=== PATIENT | female | born 1940 | race Caucasian/White ===

== ENCOUNTER 2016-06-19 08:18 | Day surgery (SDC) | payer MEDICARE, BC ==
--- NOTE | 2016-06-18 11:49 | NUR ---
CARDIAC HX OF CHEST PAIN & HEART CATH IN APR [address] RUSSELL, REPORT & EKG IN CHART, THIS FINDING/INFORMATION WAS GIVEN TO MARCELINO GALEANA CRNA TO VERIFY IF WE WOULD NEED TO GET CARDIAC CLEARANCE FROM DR RUSSELL'S OFFICE. MARCELINO LOOKED OVER CHART AND STATED THAT WHAT WAS IN THE CHART WAS GOOD ENOUGH FOR HIM TO CONTINUE WITH THE PROCEDURE. 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
[~2016-06-19] VITALS: Ht 160 cm; Wt 47.5 kg
[~2016-06-19 08:18] MED LIST: ALEN70TA2 PO; ASPI-558 PO; CRAN500C3 PEG; FLUO10TA27 PO; LIDOCAINE 1% (10mg/ml) 2ml SDV INJ ONE; LR 1,000 ML IV SCH; SIMV40TA5 PO; [UNRECOGNIZED DRUG - CODE] PO
--- OUTSIDE RECORDS SUMMARY | 2016-06-19 08:22 | XMS REPORT | Continuity of Care Document ---
Author Author [facility] Organization [facility] Address Unknown Phone Unavailable Allergies Medications Problems Procedures Results Encounters ACCT No. Visit Date/Time Discharge Status Pt. Type Provider Facility Loc./Unit Complaint [id number] 03/23/2013 08:46:00 03/23/2013 23 :59:59 CLS Outpatient
--- OUTSIDE RECORDS SUMMARY | 2016-06-19 08:22 | XMS REPORT | Referral Summary ---
Author Author [facility], [facility] Organization [facility] Address Unknown Phone Unavailable Care Team Providers Care Ramp Lead Name Role Phone Sydnie Sales Primary Care Physician [phone] Encounter VC Date(s): 01/02/16 - 01/02/16 [facility] [address] [place] [address]- Discharge Disposition: 01-Home or Self Care Attending Physician: Herman Jones APRN Admitting Physician: Herman Jones APRN Vital Signs No data available for this section Problem List Condition Effective Dates Status Health Status Informant Anxiety Resolved depression(Confirmed ) Anxiety state Active (finding)(Confirmed) Hx anemia(Confirmed) Resolved Hx Resolved pyelonephritis(Confi rmed) Hx urinary Resolved infection(Confirmed) Malaria(Confirmed) 2012 Resolved Mitral valve 1998 Resolved thickening on ECHO(Confirmed) Osteoporosis(Confirm Resolved ed) 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) Allergies, Adverse Reactions, Alerts Substance Reaction Severity Status Cipro doesn't work Active sulfamethoxazole fever Active Medications Aspirin Low Dose mg, Oral, Daily, 0 Refill(s) Start Date: 08/27/13 Status: Ordered FLUoxetine 10 mg oral capsule See Instructions, TAKE ONE CAPSULE BY MOUTH DAILY, # 120 caps, 1 Refill(s), eRx : [facility] #[id number], TAKE ONE CAPSULE BY MOUTH DAILY Start Date: 08/15/15 Status: Ordered Fosamax 70 mg oral tablet 70 mg 1 tabs, Oral, qWeek, # 12 tabs, 3 Refill(s), Pharmacy: [facility] # [id number], 1 tabs Oral qWeek Start Date: 04/26/15 Status: Ordered meloxicam 15 mg oral tablet 15 mg 1 tabs, Oral, Daily, # 15 tabs, 0 Refill(s), Pharmacy: [facility] # [id number], 1 tabs Oral Daily Start Date: 06/14/15 Status: Ordered simvastatin 40 mg oral tablet See Instructions, TAKE ONE TABLET BY MOUTH EVERY NIGHT AT BEDTIME, # 120 tabs, 2 Refill(s), eRx: [facility] #[id number], TAKE ONE TABLET BY MOUTH EVERY NIGHT AT BEDTIME Start Date: 07/06/15 Status: Ordered Zofran ODT 4 mg oral tablet, disintegrating 4 mg 1 tabs, Oral, q6hr, as needed for nausea/vomiting, # 8 tabs, 1 Refill(s), Pharmacy: [facility] #[id number], 1 tabs Oral q6hr,PRN:as needed for nausea/ vomiting Start Date: 05/01/15 Stop Date: 05/01/16 Status: Ordered Results No data available for this section Immunizations Vaccine Date Refusal Reason cholera vaccine 02/15/82 cholera vaccine 08/31/81 cholera vaccine 03/16/64 tetanus/diphth/pertuss (Tdap) adult/adol 11/18/13 tetanus/diphth/pertuss (Tdap) adult/adol 03/16/62 hepatitis A adult vaccine 12/15/11 hepatitis A adult vaccine 12/14/09 hepatitis A adult vaccine 06/24/99 hepatitis A-hepatitis B vaccine 01/19/12 hepatitis B adult vaccine 11/18/13 hepatitis B adult vaccine 12/15/11 influenza virus vaccine, inactivated 01/02/16 influenza virus vaccine, inactivated 01/16/15 influenza virus vaccine, live 03/02/13 influenza virus vaccine, live 01/19/12 meningococcal conjugate vaccine 11/18/13 meningococcal conjugate vaccine 06/15/03 meningococcal conjugate vaccine 04/01/99 meningococcal conjugate vaccine 01/23/94 poliovirus vaccine, inactivated 12/15/11 tetanus toxoid 05/09/99 tetanus-diphth toxoids (Td) adult/adol 06/14/03 tetanus-diphth toxoids (Td) adult/adol 05/09/99 tetanus-diphth toxoids (Td) adult/adol 01/09/94 tetanus-diphth toxoids (Td) adult/adol 03/16/81 typhoid vaccine, live 06/15/03 typhoid vaccine, live 05/09/99 typhoid vaccine, live 01/09/94 typhoid vaccine, live 03/16/81 yellow fever vaccine 06/14/03 yellow fever vaccine 07/25/92 yellow fever vaccine 03/16/64 yellow fever vaccine 03/16/61 Procedures Procedure Date Related Diagnosis Body Site Exc Sq cell CA Tonsillectomy Social History Social History Type Response Smoking Status Never smoker Assessment and Plan No data available for this section
--- OUTSIDE RECORDS SUMMARY | 2016-06-19 08:23 | XMS REPORT | Continuity of Care Document ---
Author Author [facility] Organization [facility] Address Unknown Phone Unavailable Support Name Relationship Address Phone NISSA RUSSELL MD Caregiver [address] [place] [address] [address] [place] [address] Unavailable NISSA RUSSELL MD Caregiver [address] [place] [address] [address] [place] [address] Unavailable ANDRZEJ BROTHERS MD Caregiver [address] [place] [address] Unavailable MARILEE ARELLANO DO Caregiver [address] [place] [address] Unavailable MALI PAGE Next Of Kin [id number] [place], [place] [id number] Insurance Providers Guarantor Prudence Page Address [address] [place] [address] Email DENIED16 [facility] Policy Number [id number] Subscriber's Name Prudence Page Relationship 18 Self Group Number [id number] Effective Date 13 Expiration Date 14 Payer Medicare Policy Number [id number] Subscriber's Name Prudence Page Relationship 18 Self Advance Directives Directive Response Recorded Date/Time Advanced Directives Type None 04/16/16 9:48am Ordered Resuscitation Status Full Code 04/16/16 11:34am Resuscitation Documents on File No 04/16/16 12:19pm DPOA for Healthcare Only No 04/16/16 12:19pm Living Will No 04/16/16 12:19pm Advance Directive Consult Information Given 04/17/16 12:08pm Problems Active Problems Medical Problem Onset Date Status Mixed hyperlipidemia Unknown Chronic Past Problems Medical Problem Onset Date Chest pain, rule out acute myocardial infarction Unknown Medications Current Home Medications Medication Dose Units Route Directions Days Qty Instructions Start Date Alendronate Sodium (Fosamax) 70 Mg Tablet 70 Mg Oral 1 Week 04/16 Aspirin (Aspir 81) 81 Mg Tablet.dr Mg Oral Daily 05/08/08 Calcium Carbonate/Vitamin D3 (Calcium 500 Mg Chewable Tablet) 1 Each Tab.chew 500 Mg Oral Daily 04/16/16 Cranberry Extract (Cranberry) 500 Mg Capsule 500 Mg Peg Tube Fluoxetine Hcl (Prozac) 10 Mg Tablet Mg Oral Daily 05/08/08 Simvastatin 40 Mg Tablet 40 Mg Oral Bedtime Take 1 tablet, by mouth , 1 time a day (at BEDTIME). 04/16/16 Past Home Medications Medication Directions Ordered Status Alendronate Sodium (Fosamax) 70 Mg Tablet, 70 Mg Oral Weekly 05/08/08 Discontinued Calcium 500 Mg Tablet, 500 Mg Oral Daily 05/08/08 Discontinued Social History Social History Problem Response Recorded Date/Time Onset Date Status Reason for Hospitalization chest pain 04/17/2016 3:51pm Not Applicable Not Applicable Hx Substance Use No 04/16/2016 10:02am Not Applicable Not Applicable Hx Alcohol Use Y wine w/ diinner 04/16/2016 10:02am Not Applicable Not Applicable Has the pt used tobacco in the last 12 months No 04/16/2016 12:21pm Not Applicable Not Applicable Query Response Start Date Stop Date Smoking Status Never smoker Hospital Discharge Instructions Instructions: Care Instructions: I was in the hospital because (patient own words): PATIENT STATES, "I FELT A VERY RAPID HEARTRATE AND DISCOMFORT IN MY CHEST" Discharge Diet: Resume heart healthy diet Discharge Activity: Limit activity for 2 days. No lifting more than 10 pounds, no pushing or pulling for 1 week. Follow Up Appointments: Follow up with Dr. Russell on: 05/01/16 at 9:00 Pending Lab / Results: No Pending Lab Patient Instructions: Do not drive, operate machinery or drink alcohol for 2 days. Take your BP 2-3X week and record, bring record to your follow up appointment. Expected Signs/Symptoms: bruising and tenderness at site Notify Physician If: Site is bleeding, abnormal drainage, increased pain or fever of 101.5 or more. During Business Hours:: Please call the physician's office at [phone] After Business Hours:: Please call [phone] and have the soda dry house operator page the physician. Pain Management/Treatment: OTC pain medications if needed Wound/Incision Care: Keep site clean and dry. No tub baths or swimming for 1 week. You may shower. Condition at time of discharge: Good Plan of Care Discharge Date 04/17/16 4:43pm Instructions/Education Provided [facility] Heart Cath Trans Rad Prescriptions See Medication Section Functional Status Query Response Date Recorded Mobility Status Ambulatory April 16, 2016 12:33pm Assistive Devices None April 16, 2016 12:33pm Activity Limitations None April 16, 2016 12:33pm Feeding Ability Independent April 16, 2016 12:33pm Toileting Ability Independent April 16, 2016 12:33pm Grooming Ability Independent April 16, 2016 12:33pm Dressing Ability Independent April 16, 2016 12:33pm Driving Ability Independent April 16, 2016 12:33pm Housework Ability Independent April 16, 2016 12:33pm Meal Preparation Ability Independent April 16, 2016 12:33pm Stair Climbing Ability Independent April 16, 2016 12:33pm Ability to complete ADL's impeded by No change April 16, 2016 12:33pm Cognitive/Perceptual Impairments Impaired vision April 16, 2016 12:33pm Visual Assistive Devices Glasses With patient April 16, 2016 12:33pm Allergies, Adverse Reactions, Alerts Allergen Type Severity Reaction Status Last Updated Sulfa (Sulfonamide Antibiotics) Allergy Mild rash Active 04/16/16 Immunizations Query Response on File Recorded Date/Time Hx Influenza Vaccination Y DECEMBER 2015 04/16/16 12:21pm Hx Pneumococcal Vaccination No 04/16/16 12:21pm Hx Influenza Vaccination Y DECEMBER 2015 04/16/16 12:21pm Influenza Vaccine Hx DECEMBER 2015 04/16/16 12:24pm Vital Signs Acute Vital Signs Vital Response Date/Time Temperature (Fahrenheit) 97.6 deg F (96.8 - 99.1) 04/17/2016 4:08pm Temperature (Calculated Celsius) 36.79509 degrees C (36.0 - 37.3) 04/17/2016 4:08pm Temperature Source Oral 04/17/2016 4:08pm Pulse Rate (adult) 49 bpm (60 - 100) 04/17/2016 4:08pm Respiratory Rate 16 breaths/min (10 - 20) 04/17/2016 4:08pm O2 Sat by Pulse Oximetry 99 % (90 - 100) 04/17/2016 4:08pm Oxygen Delivery Method Room Air 04/17/2016 4:08pm Oxygen Delivery Method Room Air 04/17/2016 4:06pm Blood Pressure 124/58 mm Hg 04/17/2016 4:08pm Blood Pressure Source Automatic Cuff 04/17/2016 4:08pm Height (Feet) 5 feet 04/16/2016 12:34pm Height (Inches) 2.00 inches 04/16/2016 12:34pm Weight (Kilograms) 48.300 kg 04/17/2016 8:00am Body Mass Index (BMI) 18.9 04/16/2016 12:18pm Results Laboratory Results Test Name Result Units Flags Reference Collection Date/Time Result Date/ Time Comments White Blood Count 6.8 T/MM3 4.5-11.0 04/17/2016 4:02am 04/17/2016 7: 52am Red Blood Count 3.96 M/MM3 L 4.00-5.20 04/17/2016 4:02am 04/17/2016 7: 52am Hemoglobin 10.1 GM/DL L 12-16 04/17/2016 4:02am 04/17/2016 7:52am Hematocrit 31.9 % L 36-46 04/17/2016 4:0204/17/2016 7:52am Mean Corpuscular Volume 80.6 UM3 80-100 04/17/2016 4:02am 04/17/2016 7: 52am Mean Corpuscular Hemoglobin 25.5 UUG L 26-34 04/17/2016 4:02am 2016 7:52am Mean Corpuscular Hemoglobin Concent 31.7 GM/DL 31-37 04/17/2016 4:02am 04/17/2016 7:52am RDW Standard Deviation 44.9 FL 36.9-50.2 04/17/2016 4:02am 04/17/2016 7 :52am Platelet Count 412 T/MM3 H 130-400 04/17/2016 4:02am 04/17/2016 7:52am Mean Platelet Volume 8.8 UM3 L 9.4-12.4 04/17/2016 4:02am 04/17/2016 7: 52am Neutrophils (%) (Auto) 58.6 % 33-66 04/17/2016 4:02am 04/17/2016 7: 52am Lymphocytes (%) (Auto) 29.6 % 23-45 04/17/2016 4:02am 04/17/2016 7: 52am Monocytes (%) (Auto) 9.2 % H 0-9.0 04/17/2016 4:02am 04/17/2016 7:52am Eosinophils (%) (Auto) 1.9 % 0-4 04/17/2016 4:02am 04/17/2016 7:52am Basophils (%) (Auto) 0.6 % 0-2 04/17/2016 4:02am 04/17/2016 7:52am Immature Granulocyte % (Auto) 0.1 % 0.0-0.5 04/17/2016 4:02am 2016 7:52am Absolute Neutrophils (auto) 4.0 T/MM3 1.8-7.7 04/17/2016 4:02am 2016 7:52am Absolute Lymphocytes (auto) 2.0 T/MM3 1-4.8 04/17/2016 4:02am 2016 7:52am Absolute Monocytes (auto) 0.6 T/MM3 0-0.8 04/17/2016 4:02am 04/17/2016 7:52am Absolute Eosinophils (auto) 0.1 T/MM3 0-0.5 04/17/2016 4:02am 2016 7:52am Absolute Basophils (auto) 0.0 T/MM3 0-0.2 04/17/2016 4:0204/17/2016 7:52am Absolute Immature Granulocyte (auto 0.01 T/MM3 0.00-0.03 04/17/2016 4: 02am 04/17/2016 7:52am Icterus Index < 2 0-7 04/17/2016 4:02am 04/17/2016 8:03am Chemistry Specimen Hemolysis 16 0-25 04/17/2016 4:02am 04/17/2016 8: 03am 0-25: Specimen Exhibited No Hemolysis. Turbidity < 20 0-20 04/17/2016 4:02am 04/17/2016 8:03am Sodium Level 138 MEQ/L 134-144 04/17/2016 4:02am 04/17/2016 8:03am Potassium Level 4.3 MEQ/L D 3.6-5 04/17/2016 4:02am 04/17/2016 8:11am Chloride Level 101 MEQ/L 98-107 04/17/2016 4:0204/17/2016 8:03am Carbon Dioxide Level 25 MEQ/L 22-30 04/17/2016 4:04/17/2016 8: 03am Anion Gap 12 MEQ/L 5-15 04/17/2016 4:04/17/2016 8:03am Blood Urea Nitrogen 11.0 MG/DL 7-17 04/17/2016 4:04/17/2016 8: 03am Creatinine 0.7 MG/DL 0.7-1.2 04/17/2016 4:04/17/2016 8:03am BUN/Creatinine Ratio 16 RATIO 6-26 04/17/2016 4:04/17/2016 8:03am Glomerular Filtration Rate Calc 82 04/17/2016 4:04/17/2016 8: 03am Glucose Level 80 MG/DL 65-110 04/17/2016 4:04/17/2016 8:03am Calculated Osmolality 264 MOSM/KG 261-280 04/17/2016 4:04/17/2016 8:03am Calcium Level 9.9 MG/DL D 8.4-10.2 04/17/2016 4:04/17/2016 8:11am Total Bilirubin 0.50 MG/DL 0.20-1.30 04/16/2016 10:0504/16/2016 10: 19am Alkaline Phosphatase 45 U/L 38-126 04/16/2016 10:0504/16/2016 10: 19am Total Protein 7.0 G/DL 6.3-8.2 04/16/2016 10:0504/16/2016 10:19am Albumin 4.3 G/DL 3.5-5.0 04/16/2016 10:0504/16/2016 10:19am Globulin 2.7 G/DL 2.4-3.6 04/16/2016 10:0504/16/2016 10:19am Albumin/Globulin Ratio 1.6 RATIO 1.1-2.2 04/16/2016 10:0504/16/2016 10:19am Aspartate Amino Transf (AST/SGOT) 26 U/L 14-36 04/16/2016 10:0504/16 10:19am Alanine Aminotransferase (ALT/SGPT) 29 U/L 9-52 04/16/2016 10:05am 03/2016 10:19am Cholesterol Level 214 MG/DL H 132-199 04/17/2016 4:02am 04/17/2016 5: 39am HDL Cholesterol Direct 57 MG/DL 40-60 04/17/2016 4:02am 04/17/2016 5: 39am Cholesterol/HDL Ratio 3.8 RATIO 0-4.0 04/17/2016 4:02am 04/17/2016 5: 39am Troponin I < 0.012 ng/ml 0-0.12 04/17/2016 4:02am 04/17/2016 5:50am Troponin values with a difference of 55% increase from orginal troponin value represent a true biological DELTA value. (%increase Calc=Orginal Troponin value, divided by subsequent Troponin value, multiplied by 100) Magnesium Level 1.9 MG/DL 1.6-2.3 04/16/2016 10:05am 04/16/2016 2:22pm Thyroid Stimulating Hormone (TSH) 6.18 MIU/L H 0.47-4.68 04/16/2016 10: 05am 04/16/2016 2:54pm Name: PRUDENCE PAGE Unit #: [id number] : 1940 Sex: F Admit Date: Loc / Svc: ED Discharge Date: DIAGNOSTIC IMAGING REPORT Report #: [id number] [facility] [place] Indication: ITS.REASON: Chest pain and pressure for one day, rapid heartbeat PROCEDURE: CHEST 1 VIEW: Encounter: Initial Comparison: March 26, 2010 FINDINGS: The lungs are clear. There is no abnormal airspace opacity, pleural effusion or pneumothorax identified. The heart size, pulmonary vasculature and mediastinum are within normal limits. No significant skeletal abnormality is seen. IMPRESSION: No acute cardiopulmonary abnormality. . Procedures No known history of procedures. Encounters Encounter Location Arrival/Admit Date Discharge/Depart Date Attending Provider Departed [facility] Day [facility] 04/16/16 11:34am 04/17/16 4 :43pm NISSA RUSSELL MD
--- OUTSIDE RECORDS SUMMARY | 2016-06-19 08:23 | XMS REPORT | Referral Summary ---
Author Author [facility] Organization [facility] Address Unknown Phone Unavailable Care Team Providers Care Stranding Machine Operator Name Role Phone Sydnie Sales Primary Care Physician [phone] Encounter VC Date(s): 04/28/16 - 04/28/16 [facility], [address] [place] [address]- Discharge Diagnosis: Palpitations Discharge Diagnosis: Subclinical hypothyroidism Discharge Diagnosis: Anxiety state (finding) Discharge Disposition: 01-Home or Self Care Attending Physician: Tim Sales MD Admitting Physician: Tim Sales MD Vital Signs Most recent to 1 oldest [Reference Range]: Peripheral Pulse 70 bpm Rate [60-100 bpm] (04/28/16 2:41 PM) Blood Pressure 120/62 mmHg [90-140/60-90 mmHg] (04/28/16 2:41 PM) Problem List Condition Effective Dates Status Health Status Informant Anxiety Resolved depression(Confirmed ) Anxiety state Active (finding)(Confirmed) Hx anemia(Confirmed) Resolved Hx Resolved pyelonephritis(Confi rmed) Hx urinary Resolved infection(Confirmed) Malaria(Confirmed) 2012 Resolved Mitral valve 1997 Resolved thickening on ECHO(Confirmed) Osteoporosis(Confirm Resolved ed) 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) Subclinical Active hypothyroidism(Confi rmed) Allergies, Adverse Reactions, Alerts Substance Reaction Severity Status amoxicillin upset stomach Active Cipro doesn't work Active sulfamethoxazole fever Active Medications Aspirin Low Dose mg, Oral, Daily, 0 Refill(s) Start Date: 08/27/13 Status: Ordered calcium (as carbonate and lactate)-vitamin D 200 mg-250 intl units oral tablet, chewable 1 tabs, Chewed, Daily, 0 Refill(s) Start Date: 04/18/16 Status: Ordered cranberry oral tablet 500 mg, Oral, Daily, 0 Refill(s) Start Date: 04/18/16 Status: Ordered FLUoxetine 10 mg oral capsule See Instructions, TAKE ONE CAPSULE BY MOUTH DAILY, # 120 caps, eRx: [facility] #[id number] Start Date: 04/01/16 Status: Ordered Fosamax 70 mg oral tablet 70 mg 1 tabs, Oral, qWeek, # 12 tabs, 3 Refill(s), Pharmacy: [facility] # [id number], 1 tabs Oral qWeek Start Date: 04/26/15 Status: Ordered simvastatin 40 mg oral tablet See Instructions, TAKE ONE TABLET BY MOUTH EVERY NIGHT AT BEDTIME, # 120 tabs, 2 Refill(s), eRx: [facility] #[id number], TAKE ONE TABLET BY MOUTH EVERY NIGHT AT BEDTIME Start Date: 07/06/15 Status: Ordered Results No data available for this section Immunizations Given and Recorded Vaccine Date Status Refusal Reason cholera vaccine 02/15/82 Recorded cholera vaccine 08/31/81 Recorded cholera vaccine 03/16/64 Recorded tetanus/diphth/pertuss (Tdap) adult/adol 11/18/13 Given tetanus/diphth/pertuss (Tdap) adult/adol 03/16/62 Recorded hepatitis A adult vaccine 12/15/11 Given hepatitis A adult vaccine 12/14/09 Recorded hepatitis A adult vaccine 06/24/99 Recorded hepatitis A-hepatitis B vaccine 01/19/12 Given hepatitis B adult vaccine 11/18/13 Given hepatitis B adult vaccine 12/15/11 Given influenza virus vaccine, inactivated 01/02/16 Given influenza virus vaccine, inactivated 01/16/15 Given influenza virus vaccine, live 03/02/13 Given influenza virus vaccine, live 01/19/12 Given meningococcal conjugate vaccine 11/18/13 Given meningococcal conjugate vaccine 06/15/03 Given meningococcal conjugate vaccine 04/01/99 Given meningococcal conjugate vaccine 01/23/94 Given poliovirus vaccine, inactivated 12/15/11 Given tetanus toxoid 05/09/99 Recorded tetanus-diphth toxoids (Td) adult/adol 06/14/03 Given tetanus-diphth toxoids (Td) adult/adol 05/09/99 Given tetanus-diphth toxoids (Td) adult/adol 01/09/94 Given tetanus-diphth toxoids (Td) adult/adol 03/16/81 Given typhoid vaccine, live 06/15/03 Given typhoid vaccine, live 05/09/99 Recorded typhoid vaccine, live 01/09/94 Given typhoid vaccine, live 03/16/81 Recorded yellow fever vaccine 06/14/03 Given yellow fever vaccine 07/25/92 Given yellow fever vaccine 03/16/64 Given yellow fever vaccine 03/16/61 Given Procedures Procedure Date Related Diagnosis Body Site Exc Sq cell CA Tonsillectomy Social History Social History Type Response Smoking Status Never smoker Assessment and Plan Extracted from: Title: TCM Visit Author: Tim Sales MD Date: 04/28/16 Impression and Plan Diagnosis Anxiety state (finding) ([id number]-KI F41.1, Discharge, Medical). Palpitations (LPN91-BE R00.2, Discharge, Medical). Subclinical hypothyroidism ([id number]-WH E03.9, Discharge, Medical).
[2016-06-19 08:37] VITALS: BP 165/79; PULSE 82; RESP 12; TEMP 97.7; O2SAT 98; Ht 160 cm; Wt 47.5 kg
--- NOTE | 2016-06-19 09:02 | ANESPREOP ---
Anesthesia Record Date and Time DATE: 06/19/16 TIME: 08:58 Pre-Op Diagnosis anemia Proposed Surgical Procedure EGD & COLONOSCOPY NPO since: mn Allergies: Coded Allergies: Sulfa (Sulfonamide Antibiotics) (Verified Allergy, Mild, rash, 06/19/16) amoxicillin (Verified Adverse Reaction, Mild, ABDOMINAL DISCOMFORT, 06/19/16 ) Ht/Wt/BMI Height: 5 ' 3.00 " Weight: 47.500 kg BMI: 18.6 kg/m2 Vital Signs Date Time Temp Pulse Resp B/P Pulse Ox O2 Delivery O2 Flow Rate FiO2 06/19/16 08:37 97.7 82 12 165/79 98 Room Air Medications Inpatient Medications Current Medications Medications (Trade) Dose Ordered Sig/Anastacio Start Time Stop Time Status Last Admin Dose Admin Lactated Ringer's (Lactated Ringers) 1,000 ml @ 50 mls/hr Q20H 06/19/16 07:00 Alendronate Sodium (Fosamax) 70 Mg Tablet, 70 MG PO 1 WEEK, (Reported) Aspirin (Aspir 81) 81 Mg Tablet.dr, MG PO DAILY, (Reported) Calcium Carbonate/Vitamin D3 (Calcium 500 mg Chewable Tablet) 1 Each Tab.chew, 500 MG PO DAILY, (Reported) Cranberry Extract (Cranberry) 500 Mg Capsule, 500 MG PEG, (Reported) Fluoxetine (Prozac) 10 Mg Tablet, MG PO DAILY, (Reported) Simvastatin (Simvastatin) 40 Mg Tablet, 40 MG PO HS, (Reported) Take 1 tablet, by mouth, 1 time a day (at BEDTIME). Currently on Beta Narciso: No Medical/Surgical History Anesthesia PMH: Reports: *Angina (APR 2016, anxiety attack, Heart cath normal ) , Anesthesia Reactions (nausea p/ t&a as child), Anxiety, Cancer (SC CARCINAMA MEDIAL CLAVICULAT REGION PER H&P), Thyroid Disease (SUBCLINICAL HYPOTHYROIDISM) , Tuberculosis, Denies: *KS, Asthma, Blood Transfusion Reac, CHF, COPD, CVA/ Stroke/TIA, Pneumonia, Seizures, Sleep Apnea Smoking Status: Never smoker Has pt. smoked today?: No Use Chewing Tobacco?: No Second Hand Exposure: No Substance Use Type: does not use Past Surgical History Orthopedic Surgeries: Abdominal Surgeries: Genitourinary Surgeries: Cardiac Surgeries: Yes - HEART CATH 2016 Endocrine Surgeries: Reproductive Surgeries: Neurological Surgeries: Ear Surgeries: Nose Surgeries: Throat Surgeries: Yes - TONSILLECTOMY PER H&P Other Surgeries: Anesthesia Adverse Reactions: FOUND none Family Hx of Anesthesia Advers: none Hx of Motion Sickness: No Pertinent Findings EKG Rhythm: Sinus Rhythm Physical Exam Respiratory: Bilat breath sounds equal, Lungs clear Cardiovascular: FOUND Regular rate, rhythm, FOUND No murmur Airway Assessment Mallampati Score: III TMD: 3 Fingerbreadths Neck Extension: Good Overall Assessment: No Airway Concerns ASA: 2 Plan Anesthesia Plan: TIVA Discussion Discussed risks/options/alternatives of anesthesia and questions answered. Patient consents. Nursing pain assessment noted. Attestation Statement Prior to the delivery of any anesthetic medication, I examined the patient, developed the plan, obtained the patient's consent and discussed the risk and benefits of the procedure with the patient/guardian. MARCELINO LACY CRNA Jun 19, 2016 09:02
[2016-06-19] MEDS ORDERED: PROPOFOL 500mg 50 ML IV ONE (09:57)
[2016-06-19] MEDS ORDERED: LIDOCAINE 2% (20mg/ml) 5ml PF SDV ONE (09:57)
[2016-06-19] MEDS ORDERED: LIDOCAINE VISCOUS 2% Oral Soln 15ml UD ONE (10:09)
[2016-06-19 10:22] VITALS: BP 102/54; PULSE 84; RESP 12; TEMP 98.5; O2SAT 97
[2016-06-19 10:37] VITALS: BP 114/57; PULSE 68; RESP 21; O2SAT 99
[2016-06-19 10:45] VITALS: BP 138/72; PULSE 62; RESP 20; O2SAT 100
--- NOTE | 2016-06-19 10:59 | ANESPO ---
Post-Op Note Date 06/19/16 Time: 10:58 Status Pt Participated in Evaluation: Pt participated in person Vital Signs Date Time Temp Pulse Resp B/P Pulse Ox O2 Delivery O2 Flow Rate FiO2 06/19/16 10:45 62 20 138/72 100 Room Air 06/19/16 10:22 98.5 Respiratory Function: Airway patent Cardiovascular Function: Regular pulse Mental Status: Alert/oriented Pain Level Intensity: 0 Hydration: IV infusing Complications during Recovery None apparent Follow-Up Instructions Instructions Per Surgeon MARCELINO LACY CRNA Jun 19, 2016 10:59
[2016-06-19 11:00] VITALS: BP 147/68; PULSE 64; RESP 16; O2SAT 97
[2016-06-19 11:15] VITALS: BP 148/70; PULSE 63; RESP 16; O2SAT 97
--- NOTE | 2016-06-19 15:17 | OPNOTEF ---
DATE OF SERVICE 06/19/2016 SURGEON Sha Murphy MD PREOPERATIVE DIAGNOSIS Iron deficiency anemia, colorectal cancer surveillance. POSTOPERATIVE DIAGNOSIS Iron deficiency anemia, colorectal cancer surveillance, normal EGD, normal colonoscopy. PROCEDURE Esophagogastroduodenoscopy, colonoscopy. ANESTHESIA TIVA BRIEF HISTORY/INDICATIONS Mrs. Page is a 75-year-old female who recently presented to my office as a result of the discovery of iron-deficiency anemia upon laboratory evaluation. Patient's hemoglobin was low at about 10.5. Her serum iron levels were also found below upon laboratory evaluation. Patient without specific GI symptomatology. It had been more than 10 years since her last endoscopic evaluation of her colon. As a result of iron deficiency anemia as well as to serve as a portion of her overall colorectal cancer surveillance, it was recommended she undergo both a colonoscopy and an EGD for further evaluation. For completeness please refer to notes included in the patient's chart. FINDINGS Upon upper endoscopy esophagus, stomach and duodenum were within normal limits. There was no evidence for ulcerations or suspicious lesions. Upon colonoscopy there was no mucosal abnormalities noted such as angiodysplastic lesions, polyps, diverticula or adelaida malignancies. DESCRIPTION OF PROCEDURE After informed consent was obtained, the patient was brought to the endoscopy suite and placed on the table in left lateral decubitus position. The patient subsequently underwent total intravenous anesthesia by the nurse manager heavy duty per my request. A formal time-out was completed. Next, a digital rectal examination was performed. Normal sphincter tone. No rectal masses were appreciated. An Olympus colonoscope was inserted in the anus and advanced through the lumen of the colon under direct visualization at all times until the cecum was ascertained. Triangulation of the teniae coli, ileocecal valve and appendiceal lumen were all visualized. The scope was then slowly withdrawn, again while maintaining visualization of the lumen at all times. As the scope was being slowly withdrawn, the mucosa was normal throughout with no evidence for angiodysplastic lesions, polyps, diverticula or adelaida malignancies. Once the colonoscope was withdrawn back into the rectal vault, a J-maneuver was then performed. No worrisome perianal pathology was noted. Scope was allowed to straighten and withdrawn through the anal verge. Next, attention was directed towards performing the upper endoscopy. An Olympus gastroscope was inserted into the oral hypopharynx and subsequently the esophagus under direct visualization. The vocal cords were visualized and found to be symmetric in nature. The scope was then advanced directly into the esophagus under direct visualization. Gastroscope was advanced through the esophagus, stomach, pylorus, duodenal bulb, into the second portion of the duodenum. The scope was slowly withdrawn. First and second portions of the duodenum were within normal limits. No evidence for duodenitis or ulcerations were noted. The scope was then drawn back into the prepyloric region and antrum. Again, no mucosal abnormalities were noted. J-maneuver was then performed. Cardia and fundus were within normal limits. Endoscopically, there was no evidence for hiatal hernia. Scope was allowed to straighten and slowly withdrawn. The remaining corpus of the stomach was well visualized and again without noted abnormalities. Scope was withdrawn back to the level of the diaphragm. Squamocolumnar junction was located at the level of the diaphragm and was well demarcated with no endoscopic evidence for Berry's metaplasia or distal esophagitis. Scope was then continued to be slowly withdrawn. The remaining esophageal mucosa was found to be within normal limits. The patient tolerated the procedure without difficulty and was sent back to the preop area in stable condition. From an endoscopic standpoint today, fortunately there was no abnormalities noted to explain the patient's anemia. Would recommend that the patient be placed on iron supplementation and her hemoglobin followed periodically. From a colorectal cancer surveillance standpoint, the patient would not need a repeat colonoscopy until 10 years from now and more than likely a repeat colonoscopy will therefore not be performed in the patient's lifetime unless specific indications should arise. DION
== END 2016-06-19 11:24 | disposition home or self-care (01) ==
LOC: SCU 08:18
PROVIDERS: ATTEND Surgery
DX: D50.9 Iron deficiency anemia, unspecified (principal); F41.8 Other specified anxiety disorders; M81.0 Age-related osteoporosis without current pathological fracture; Z79.82 Long term (current) use of aspirin; Z79.899 Other long term (current) drug therapy; Z88.1 Allergy status to other antibiotic agents; Z88.2 Allergy status to sulfonamides